=== PATIENT | male | born 1940 | race African-American/Black ===

== ENCOUNTER 2016-11-29 10:44 | Inpatient (IN) | payer OTHER ==
[~2016-11-29] VITALS: Ht 185.4 cm; Wt 86.2 kg
--- NOTE | ~2016-11-29 | 2DMMODE ---
[facility] [place] [address] 2 D/M-MODE ECHOCARDIOGRAM Name: KILLIAN LOPEZ Room #: 170-6 [facility] IN [facility]#: [id number] Admission: 11/29/16 Attend Phys: Madison Belle Discharge: Date of : 42 Date of Service: 11/29/16 1445 Report #: [id number] THIS REPORT FOR: //name// Transthoracic Echocardiography Ordering physician: Honey Muñoz Referring physician: Greta Buckley Saida A. Systems Operator: Nadira Fernandes Indications/History: Elevated BNP. Hx: ISCM, CHF, AICD, NJ, HTN, HLP BP: 114 / HR: 99bpm Height: 71in Weight: 180.6lb 80 Study data: M-mode, complete 2D, complete spectral Doppler, and color Doppler. Location: Emergency department. Routine. Image quality was adequate. The parasternal window was low. 2D measurements Normal Normal LVID ED 51.5mm 36-57 IVS ED 9.5mm 6-11 LVID ES 45.2mm 23-40 LVPW ED 10mm 6-11 LA volume 32ml/m2 16-28 AoRoot diam 32.2mm 21-37 index ED LVOT diameter 21mm 18-23 Findings: Left ventricle: The cavity size was normal. Wall thickness was normal. Systolic function was severely reduced. The estimated ejection fraction was in the range of 25% to 30%. Right ventricle: The cavity size was normal. Pacer wire or catheter noted in right ventricle. Systolic function was mildly reduced. Right atrium: The atrium was mildly dilated. Left atrium: The atrium was mildly dilated. Volume index: 32ml/m2 (S). Aortic valve: Structurally normal valve. Mildly sclerotic leaflets. Doppler: There was no stenosis. Mild [facility] [address] [place] [address] 2 D/M-MODE ECHOCARDIOGRAM Name: KILLIAN LOPEZ Room #: 170-6 ADM IN [place]#: [id number] Admission: 11/29/16 Attend Phys: Madison Belle Discharge: Date of : 42 Date of Service: 11/29/16 1445 Report #: [id number] regurgitation. Peak velocity: 141.9cm/s (S). Mitral valve: Structurally normal valve. Doppler: There was no evidence for stenosis. Mild regurgitation. Peak E-wave velocity: 84.4cm/s. Peak gradient: 2.9mm Hg (D). Tricuspid valve: Structurally normal valve. Doppler: There was no evidence for stenosis. Mild-moderate regurgitation. Regurgitant peak velocity: 238cm/s. Peak RV-RA gradient: 23mm Hg (S). Pulmonic valve: Structurally normal valve. Doppler: There was no evidence for stenosis. Trivial regurgitation. Pericardium: There was no pericardial effusion. Aorta: Aortic root: The aortic root was normal in size. Pulmonary artery: Systolic pressure was estimated to be 28mm Hg. Diastolic function: The study was not technically sufficient to allow evaluation of LV diastolic dysfunction due to atrial fibrillation. Systemic veins: Inferior vena cava: The vessel was normal in size; the respirophasic diameter changes were in the normal range (= 50%). Conclusions 1. Left ventricle: The cavity size was normal. Wall thickness was normal. Systolic function was severely reduced. The estimated ejection fraction was in the range of 25% to 30%. 2. Right ventricle: Pacer wire or catheter noted in right ventricle. 3. Right atrium: The atrium was mildly dilated. 4. Left atrium: The atrium was mildly dilated. 5. Aortic valve: Structurally normal valve. Mildly sclerotic leaflets. Mild regurgitation. 6. Mitral valve: Structurally normal valve. Mild regurgitation. 7. Pulmonic valve: Trivial regurgitation. 8. Tricuspid valve: Mild-moderate regurgitation. [facility] [address] [place] [address] 2 D/M-MODE ECHOCARDIOGRAM Name: KILLIAN LOPEZ Room #: 170-6 [facility] IN [facility].#: [id number] Admission: 11/29/16 Attend Phys: Madison Belle Discharge: Date of : 42 Date of Service: 11/29/16 1445 Report #: [id number] 9. Pulmonary arteries: Systolic pressure was estimated to be 28mm Hg. <ELECTRONICALLY SIGNED> By: Emanuel Sheppard MD 11/29/16 1532 1445 153 Emanuel Sheppard MD /tad
--- NOTE | ~2016-11-29 | EKG ---
[address] [place] [address] ELECTROCARDIOGRAM REPORT Name: KILLIAN LOPEZ Room #: 170-6 ADM IN M.R.#: [id number] Admission: 11/29/16 Attend Phys: Madison Belle MD Discharge: Date of : 42 Report #: [id number] THIS REPORT FOR: //name// [facility] ED Test Date: 2016-11-29 Test Time: 11:02:35 Pat Name: KILLIAN LOPEZ Department: Room: 170 Gender: M Record Librarian: LARY : 1940 Requested By: Madeline Epps Order Number: [id number] MD: Cecilio Jones Measurements Intervals [place] Rate: 118 P: [place]: QRS: 23 QRSD: 121 T: 67 QT: 400 QTc: 561 Interpretive Statements Atrial flutter with predominant 2:1 AV block Occasional premature ventricular complexes Poor R-wave progression Cannot rule out inferior infarct, age indeterminate Compared to ECG 10/09/2016 08:53:23 No significant change was found Electronically Signed On 11-29-2016 13:26:58 TRAPPER BIRD by Cecilio Jones [email or web address] <ELECTRONICALLY SIGNED> By: Cecilio Jones MD, [facility] 11/29/16 1326 1102 1102 Cecilio Jones MD, [facility] /EPI
[~2016-11-29 10:44] MED LIST: 8 HOUR650 MG PO; ACETAMINOPHEN325 M1 PO; ACETAMINOPHEN650 M5 PO; ALUM-MAG HYDRO360 ML PO; ASPERCREME177.4 ML; ASPIRIN EC81 M1 PO; ASPIRIN81 M2 PO; ATORVASTATIN CA20 MG PO; BENTYL 10 MG CA10 M1 PO; BENTYL 20 MG TA20 M1 PO; BIOFREEZE118 ML TP; BISACODYL SUPP10 MG RECTAL; BISCOLAX10 MG RC; CALCI-MIX500 MG PO; CARVEDILOL12.5 MG PO; CLONIDINE0.1 PO; COLACE100 MG PO; COUMADIN 5 MG TA5 M1 PO; COUMADIN7.5 MG PO; COZAAR 50 MG TA50 M1 PO; COZAAR 50 MG TA50 M2 PO; EFFEXOR XR37.5 MG PO; ENOXAPARIN100 MG/11 SUBQ; FLEXERIL PO; IRON325 PO; KLOR-CON 1010 MEQ PO; LASIX 40 MG TAB40 M1 PO; LASIX 40 MG TAB40 M2 PO; LEVOTHYROXIN0.025 MG PO; LIPITOR 20 MG T20 M1 PO; LYRICA 50 MG50 MG PO; MECLIZINE HCL12.5 MG PO; MELATONIN3 MG PO; METOLAZONE 2.52.5 M1; MIRALAX17 GM; MIRALAX17 GM PO; MIRALAX255 GM PO; MUCINEX600 MG PO; NEURONTIN 300300 M1 PO; NEURONTIN600 MG; NICOTINE TRANSD21 M1 TRANSDERM; NITROGLYCERIN0.4 MG SUBLING; NORCO 5-325 TA1 EACH PO; NYSTATIN 100,0015 G1 TP; OMEPRAZOLE20 M2 PO; OXYCODONE; OXYCODONE HCL 55 MG PO; OXYCODONE HCL15 MG PO; OXYCODONE HCL5 M1 PO; PACERONE 200 M200 M1 PO; PANTOPRAZOLE SO40 M1 PO; POTASSIUM CHLO20 ME1 PO; PRADAXA150 MG PO; PROAIR HFA8.5 GM; PROAIR HFA8.5 GM INH; PROTONIX40 M2 PO; ROXICODONE15 M1 PO; SENNA LAXATIVE1 EACH PO; SENOKOT-S1 TA1 PO; SIMETHICON CHEW80 M1; SLOW IRON PO; TAMSULOSIN HCL0.4 M1 PO; TUMS PO; TYLENOL325 MG; TYLENOL325 MG PO; VENTOLIN HFA INH8 GM INH; VITAMIN D 5050000 I1 PO; XANAX 0.25 MG0.25 MG PO; XANAX 0.5 MG0.5 MG PO; ZOFRAN ODT4 MG PO
[2016-11-29 10:45] VITALS: BP 125/92
[2016-11-29] MEDS ORDERED: CIPRO500 MG PO (10:52)
[2016-11-29] MEDS ORDERED: TESSALON PERLE100 MG PO (10:52)
[2016-11-29 11:12] LABS: HEMATOCRIT 43.8 % (42.0-52.0); HEMOGLOBIN 14.5 gm/dL (14.0-18.0); MCH 30.3 pg (26.0-34.0); MCV 91.7 fL (80.0-100.0); PLATELET COUNT 157 thou/uL (150-400); RBC 4.77 mil/uL (4.50-6.00); RDW 15.2 % (10.5-14.5)
[2016-11-29 11:14] LABS: MANUAL DIFF YES
[2016-11-29 11:15] LABS: CALCIUM 9.1 mg/dL (8.5-10.1); CREATININE 1.4 mg/dL (0.6-1.3); POTASSIUM 4.7 mmol/L (3.5-5.1)
[2016-11-29 11:21] LABS: ABG SAMPLE TYPE ARTERIAL; BE(vivo) -0.5 mmol/L (-2 to +3); HCO3 24.9 mmol/L (22.0-26.0); LACTATE 1.48 mmol/L (0.5-2.0); O2(CT) 19.8 mL/dL (15.0-23.0); O2Hb 95.4 % (92.0-98.0); PCO2 43.9 mmHg (35.0-45.0); PO2 97.8 mmHg (80.0-100.0); STICK SITE R.RADIAL; pH 7.372 (7.360-7.450); sO2 97.3 % (92.0-98.0); tCO2 26.3 mmol/L (24.0-30.0)
[2016-11-29 11:28] LABS: TROPONIN-I 0.1 ng/mL (<0.04-0.07)
[2016-11-29 11:48] LABS: ABSOLUTE NEUTROPHILS 4.4 thou/uL (1.4-8.2); PLATELET ESTIMATE NORMAL; TOTAL CELL COUNT 100
[2016-11-29 12:22] LABS: URINE BILIRUBIN NEGATIVE (Negative); URINE BLOOD 1+ (Negative); URINE COLOR YELLOW; URINE GLUCOSE-RANDOM* NEGATIVE (Negative); URINE KETONES NEGATIVE (Negative); URINE LEUKOCYTES-REFLEX TRACE (Negative); URINE PROTEIN (DIPSTICK) NEGATIVE (Negative); URINE SPECIFIC GRAVITY 1.025 (1.003-1.035); URINE UROBILINOGEN 0.2 E.U./dl (0.2-1.0)
[2016-11-29 12:28] LABS: SQUAMOUS 0-3 Few /LPF (0-3); URINE RBC 0-2 Rare /HPF (0-2); URINE WBC-REFLEX 0-5 Rare /HPF (0-5)
[2016-11-29 12:29] LABS: CRYSTALS None Seen /LPF (None Seen); HYALINE CASTS 0-3 Few /LPF (None Seen)
[2016-11-29 16:16] VITALS: BP 107/70
[2016-11-29 19:33] VITALS: BP 119/78
[2016-11-29 23:12] VITALS: BP 107/70
[2016-11-30] MEDS ORDERED: EFFEXOR XR75 MG PO ×2 (02:58→02:59)
[2016-11-30] MEDS ORDERED: CARVEDILOL12.5 MG PO (03:10)
[2016-11-30 03:26] LABS: ABSOLUTE NEUTROPHILS 2.7 thou/uL (1.4-8.2); BASOPHILS 0.8 % (0.0-2.0); HEMATOCRIT 44.3 % (42.0-52.0); HEMOGLOBIN 14.1 gm/dL (14.0-18.0); LYMPHOCYTES 16.7 % (24.0-44.0); MCH 30.1 pg (26.0-34.0); MCHC 31.8 % (28.0-37.0); MCV 94.8 fL (80.0-100.0); MONOCYTES 11.9 % (1.0-8.0); PLATELET COUNT 133 thou/uL (150-400); POLYS 69.6 % (36.0-66.0); RBC 4.67 mil/uL (4.50-6.00); WBC 3.8 thou/uL (4.0-11.0)
[2016-11-30 03:48] LABS: MANUAL DIFF NO
[2016-11-30 03:52] VITALS: BP 114/81
[2016-11-30 03:55] LABS: ALBUMIN 2.3 g/dL (3.4-5.0); CALCIUM 8.6 mg/dL (8.5-10.1); CREATININE 1.4 mg/dL (0.6-1.3); POTASSIUM 3.8 mmol/L (3.5-5.1); TOTAL BILIRUBIN 0.5 mg/dL (<0.1-1.0); TOTAL PROTEIN 6.6 g/dL (6.4-8.2)
[2016-11-30 08:00] VITALS: BP 120/80
[2016-11-30 13:41] VITALS: BP 94/60
[2016-11-30 13:44] VITALS: BP 103/70
[2016-11-30 17:05] VITALS: BP 98/64
[2016-11-30 20:19] VITALS: BP 100/67
[2016-12-01 04:27] VITALS: BP 97/64
[2016-12-01 04:28] LABS: HEMATOCRIT 44.2 % (42.0-52.0); HEMOGLOBIN 14.2 gm/dL (14.0-18.0); MCH 30.5 pg (26.0-34.0); MCHC 32.1 % (28.0-37.0); PLATELET COUNT 125 thou/uL (150-400); RBC 4.65 mil/uL (4.50-6.00); RDW 15.1 % (10.5-14.5); WBC 3.9 thou/uL (4.0-11.0)
[2016-12-01 04:32] LABS: MANUAL DIFF YES
[2016-12-01 05:47] LABS: ABSOLUTE NEUTROPHILS 2.1 thou/uL (1.4-8.2); ANISOCYTOSIS SLIGHT; MACROCYTES SLIGHT; TOTAL CELL COUNT 100
[2016-12-01 08:14] VITALS: BP 99/64
[2016-12-01 08:22] LABS: CALCIUM 8.1 mg/dL (8.5-10.1); CREATININE 1.3 mg/dL (0.6-1.3); POTASSIUM 3.5 mmol/L (3.5-5.1)
[2016-12-01 12:05] VITALS: BP 111/72
[2016-12-01 20:02] VITALS: BP 83/53
[2016-12-02] VITALS: BP 92/62
[2016-12-02 03:59] VITALS: BP 98/58
[2016-12-02 04:31] LABS: HEMATOCRIT 42.5 % (42.0-52.0); HEMOGLOBIN 13.7 gm/dL (14.0-18.0); MCH 30.1 pg (26.0-34.0); MCHC 32.3 % (28.0-37.0); MCV 93.2 fL (80.0-100.0); PLATELET COUNT 126 thou/uL (150-400); RBC 4.56 mil/uL (4.50-6.00); RDW 15.2 % (10.5-14.5); WBC 3.7 thou/uL (4.0-11.0)
[2016-12-02 04:39] LABS: MANUAL DIFF YES
[2016-12-02 04:48] LABS: ALBUMIN 2.5 g/dL (3.4-5.0); CALCIUM 8.6 mg/dL (8.5-10.1); CREATININE 1.5 mg/dL (0.6-1.3); POTASSIUM 3.8 mmol/L (3.5-5.1); TOTAL BILIRUBIN 0.4 mg/dL (<0.1-1.0); TOTAL PROTEIN 6.8 g/dL (6.4-8.2)
[2016-12-02 07:00] VITALS: BP 98/64
[2016-12-02 09:01] LABS: ABSOLUTE NEUTROPHILS 1.8 thou/uL (1.4-8.2); TOTAL CELL COUNT 100
[2016-12-02] MEDS ORDERED: TAMIFLU30 MG PO (09:40)
[2016-12-02] MEDS ORDERED: PRADAXA150 MG PO (09:40)
[2016-12-02] MEDS ORDERED: AUGMENTIN 875875 MG PO (09:40)
[2016-12-02] MEDS ORDERED: ZYVOX600 MG PO (09:40)
[2016-12-02] MEDS ORDERED: LEVAQUIN 750 M750 MG PO (09:40)
[2016-12-02] MEDS ORDERED: OXYCODONE (09:40)
[2016-12-02 11:15] VITALS: BP 123/78
[2017-01-29] MEDS ORDERED: VITAMINC500 PO (01:00)
[2017-01-29] MEDS ORDERED: BIOFREEZE118 ML (01:02)
[2017-01-29] MEDS ORDERED: COLACE100 MG PO (01:03)
[2017-01-29] MEDS ORDERED: ZANTAC 150MG T150 MG PO (01:07)
[2017-01-29] MEDS ORDERED: GABAPENTIN 100100 MG PO (04:12)
[2017-01-29] MEDS ORDERED: LASIX 40 MG TAB40 M2 PO (04:16)
[2017-01-31] MEDS ORDERED: AUGMENTIN 875875 MG PO (10:56)
== END 2016-12-02 14:46 | DRG 871 ==
LOC: ER 10:44 → EROBS 12:22 → 2N 12:22
PROVIDERS: Emergency Medicine; Internal Medicine Endocrinology, Diabetes & Metabolism; Nurse Practitioner
DX: A41.9 Sepsis, unspecified organism (principal); J09.X1 Influenza due to identified novel influenza A virus with pneumonia; I50.23 Acute on chronic systolic (congestive) heart failure; J15.9 Unspecified bacterial pneumonia; N17.9 Acute kidney failure, unspecified; N39.0 Urinary tract infection, site not specified; I48.92 Unspecified atrial flutter; G89.29 Other chronic pain; M54.9 Dorsalgia, unspecified; Z96.643 Presence of artificial hip joint, bilateral; I11.0 Hypertensive heart disease with heart failure; F17.210 Nicotine dependence, cigarettes, uncomplicated; E86.0 Dehydration; K21.9 Gastro-esophageal reflux disease without esophagitis; F32.9 Major depressive disorder, single episode, unspecified; E78.5 Hyperlipidemia, unspecified; M25.571 Pain in right ankle and joints of right foot; I25.10 Atherosclerotic heart disease of native coronary artery without angina pectoris; Z95.5 Presence of coronary angioplasty implant and graft; Z79.82 Long term (current) use of aspirin; Z79.2 Long term (current) use of antibiotics; I25.2 Old myocardial infarction; Z95.810 Presence of automatic (implantable) cardiac defibrillator
CPT/HCPCS: 10081

== ENCOUNTER 2016-12-11 13:56 | Emergency (ER) | payer OTHER ==
[~2016-12-11] VITALS: Ht 175.3 cm; Wt 83.9 kg
[~2016-12-11 13:56] MED LIST changes: +AUGMENTIN 875875 MG PO; +CIPRO500 MG PO; +EFFEXOR XR75 MG PO; +LEVAQUIN 750 M750 MG PO; +TAMIFLU30 MG PO; +TESSALON PERLE100 MG PO; +ZYVOX600 MG PO
[2016-12-11 14:27] LABS: HEMATOCRIT 38.7 % (42.0-52.0); HEMOGLOBIN 12.9 gm/dL (14.0-18.0); MCH 30.6 pg (26.0-34.0); MCHC 33.2 % (28.0-37.0); PLATELET COUNT 212 thou/uL (150-400); RBC 4.21 mil/uL (4.50-6.00); RDW 14.8 % (10.5-14.5)
[2016-12-11 14:29] LABS: CALCIUM 9.2 mg/dL (8.5-10.1); CREATININE 2.5 mg/dL (0.6-1.3); MANUAL DIFF YES; POTASSIUM 4.9 mmol/L (3.5-5.1)
[2016-12-11 14:36] LABS: ALBUMIN 2.8 g/dL (3.4-5.0); TOTAL BILIRUBIN 0.5 mg/dL (<0.1-1.0); TOTAL PROTEIN 7.5 g/dL (6.4-8.2)
[2016-12-11 14:56] LABS: ABSOLUTE NEUTROPHILS 6.1 thou/uL (1.4-8.2); PLATELET ESTIMATE NORMAL; TOTAL CELL COUNT 100
[2017-01-29] MEDS ORDERED: VITAMINC500 PO (01:00)
[2017-01-29] MEDS ORDERED: BIOFREEZE118 ML (01:02)
[2017-01-29] MEDS ORDERED: COLACE100 MG PO (01:03)
[2017-01-29] MEDS ORDERED: ZANTAC 150MG T150 MG PO (01:07)
[2017-01-29] MEDS ORDERED: GABAPENTIN 100100 MG PO (04:12)
[2017-01-29] MEDS ORDERED: LASIX 40 MG TAB40 M2 PO (04:16)
[2017-01-31] MEDS ORDERED: AUGMENTIN 875875 MG PO (10:56)
== END 2016-12-11 16:01 ==
LOC: ER 13:56
PROVIDERS: Emergency Medicine
DX: K25.9 Gastric ulcer, unspecified as acute or chronic, without hemorrhage or perforation (principal); M54.9 Dorsalgia, unspecified; G89.29 Other chronic pain; K21.9 Gastro-esophageal reflux disease without esophagitis; I25.2 Old myocardial infarction; I25.10 Atherosclerotic heart disease of native coronary artery without angina pectoris; E78.5 Hyperlipidemia, unspecified; F32.9 Major depressive disorder, single episode, unspecified; I11.0 Hypertensive heart disease with heart failure; I50.30 Unspecified diastolic (congestive) heart failure; F17.210 Nicotine dependence, cigarettes, uncomplicated; Z95.5 Presence of coronary angioplasty implant and graft

== ENCOUNTER 2017-02-16 12:41 | Emergency (ER) | payer OTHER ==
[~2017-02-16] VITALS: Ht 185.4 cm; Wt 90.7 kg
--- NOTE | ~2017-02-16 | EKG ---
[address] [address] ELECTROCARDIOGRAM REPORT Name: KALIENGOZIMadayKILLIAN Wei Room #: [facility]#: [id number] Admission: 02/16/17 Attend Phys: Discharge: Date of : 42 Report #: [id number] THIS REPORT FOR: //name// [facility] Test Date: 2017-02-16 Test Time: 13:01:20 Pat Name: KILLIAN LOPEZ Department: Room: Gender: M Drawing In Hand: KKODJOVI : 1940 Requested By: Phu Ag Order Number: [id number] MD: Brian Ariza Measurements Intervals [place] Rate: 111 P: 82 WI: 172 QRS: -60 QRSD: 139 T: 99 QT: 345 QTc: 469 Interpretive Statements Atrial flutter Nonspecific IVCD with LAD Probable anteroseptal infarct, recent Electronically Signed On 02-16-2017 13:42:49 CDT by Brian Ariza [email or web address] <ELECTRONICALLY SIGNED> By: Brian Ariza MD 02/16/17 1342 1301 1301 MD NINO Gallo
[~2017-02-16 12:41] MED LIST changes: +BIOFREEZE118 ML; +GABAPENTIN 100100 MG PO; +VITAMINC500 PO; +ZANTAC 150MG T150 MG PO
[2017-02-16 12:53] LABS: ABSOLUTE NEUTROPHILS 2.8 thou/uL (1.4-8.2); BASOPHILS 0.4 % (0.0-2.0); EOSINOPHILS 1.1 % (0.0-3.0); HEMOGLOBIN 12.4 gm/dL (14.0-18.0); LYMPHOCYTES 40.9 % (24.0-44.0); MCH 29.8 pg (26.0-34.0); MCHC 33.4 g/dL (28.0-37.0); MCV 89.1 fL (80.0-100.0); MONOCYTES 9.9 % (1.0-8.0); PLATELET COUNT 171 thou/uL (150-400); POLYS 47.7 % (36.0-66.0); RBC 4.15 mil/uL (4.50-6.00); RDW 14.2 % (10.5-14.5)
[2017-02-16 13:00] LABS: MANUAL DIFF NO
[2017-02-16 13:02] LABS: ANION GAP 9 mmol/L (7-16); BUN 31 mg/dL (7-18); CALCIUM 9.5 mg/dL (8.5-10.1); CHLORIDE 107 mmol/L (98-107); CO2 25 mmol/L (21-32); CREATININE 1.4 mg/dL (0.6-1.3); GLUCOSE 108 mg/dL (70-99); POTASSIUM 4.3 mmol/L (3.5-5.1); SODIUM 141 mmol/L (136-145)
[2017-02-16 13:14] LABS: NT-PRO BRAIN NAT PEPTIDE 346 pg/mL (<300); TROPONIN-I < 0.04 ng/mL (<0.04-0.07)
== END 2017-02-16 18:24 | disposition home or self-care (01) ==
LOC: ER 12:41
PROVIDERS: Nurse Practitioner
DX: I50.9 Heart failure, unspecified (principal); R60.0 Localized edema; I10 Essential (primary) hypertension; F17.210 Nicotine dependence, cigarettes, uncomplicated; I25.2 Old myocardial infarction; E78.5 Hyperlipidemia, unspecified; F32.9 Major depressive disorder, single episode, unspecified; G89.29 Other chronic pain; K21.9 Gastro-esophageal reflux disease without esophagitis; Z95.5 Presence of coronary angioplasty implant and graft

== ENCOUNTER 2017-03-04 12:45 | Inpatient (IN) | payer OTHER ==
[2017-03-04] VITALS (38 sets, daily range): BP systolic 77–146; BP diastolic 35–100
[~2017-03-04] VITALS: Ht 185.4 cm; Wt 97.1 kg
--- NOTE | ~2017-03-04 | HC ---
[facility] [place] [address] [place] [address] CONSULTATION Name: KILLIAN LOPEZ Room #: 239-P ADM IN M.R.#: [id number] Admission: 03/04/17 Attend Phys: Madison Belle MD Discharge: Date of : 42 Report #: [id number] THIS REPORT FOR: //name// CC: QUYEN unknown Bo Buckley DO DATE OF SERVICE: 03/04/2017 HISTORY OF PRESENT ILLNESS: The patient is a 76-year-old male with an upper GI bleed, reportedly having hematemesis several days. He has multiple medical problems. He is on Pradaxa. He does report some midepigastric abdominal pain, began having melena for the last several days, melanotic stools, apparently he has had a history of peptic ulcer disease in the past. Most of the history was obtained through the computer and ER note. The patient also has aspirin 81 mg listed. He is on omeprazole and Zantac as well. He is currently in the ICU. He is hypotensive, his INR is 4.4. He is getting FFP at this time as well as another unit of blood has been ordered. He is alert. He is complaining of abdominal pain and leg pain. He has a Yankauer sucking out some bright red blood from his mouth. There is evidence of bright red blood in his mouth as well around his teeth. He was given IV fluid bolus in the emergency room. He denies any chest pain or shortness of breath currently. PAST MEDICAL HISTORY: History of coronary artery disease status post cardiac stent placement, history of CO in the past, hyperlipidemia, depression, gastroesophageal reflux disease, possible history of peptic ulcer disease, congestive heart failure, hypertension, chronic back pain. He has had hip replacement surgery, IVC filter placement apparently for DVT. MEDICATIONS: At home Pradaxa, oxycodone, Lasix, Cozaar, potassium chloride, Neurontin, aspirin 81 mg, Dulcolax, Tums, , omeprazole, Zantac, Colace, vitamin C, Tessalon perles p.r.n., vitamin D, Tylenol p.r.n., Senokot, Nitrostat, MiraLax, iron, Coreg, Effexor, Xanax, Synthroid. ALLERGIES: No known drug allergies. FAMILY HISTORY: Negative for colon cancer. SOCIAL HISTORY: He does have a history of cigarette smoking as well as alcohol use. REVIEW OF SYSTEMS: As per HPI. PHYSICAL EXAMINATION: VITAL SIGNS: Temperature is 98.0, his blood pressure currently is 98/66, his [address] [place] [address] CONSULTATION Name: KILLIAN LOPEZ Room #: 239-P [facility] IN M.R.#: [id number] Admission: 03/04/17 Attend Phys: Madison Belle MD Discharge: Date of : 41 Report #: [id number] pulse of 103 and respiratory rate 24. GENERAL: He is alert and oriented times 3 in no acute distress other than he does have blood in his mouth. HEENT: Sclerae anicteric, oropharynx shows blood again some bright red blood. NECK: Supple. CARDIOVASCULAR: Regular rhythm, but tachycardic. CHEST: Clear to auscultation anteriorly bilaterally. ABDOMEN: Soft. He is mildly tender in the midepigastrium, nondistended, positive bowel sounds. EXTREMITIES: Positive pitting edema to the lower extremities bilaterally. LABORATORY DATA: Sodium 141, potassium 4.1, chloride 105, bicarbonate 27, BUN 31, creatinine 1.8, glucose 79. BNP is 19,462. INR 4.4. WBC is 4.9, hemoglobin 13.1, platelet count is 123. ASSESSMENT AND PLAN: 1. Upper gastrointestinal bleed. The patient has been on Pradaxa and aspirin. INR is 4.4. Plan is to reverse Pradaxa. He is also getting FFP, obviously we need to monitor his hemoglobin closely. He is in the ICU setting at this time. His blood pressure has improved somewhat since his IV fluid bolus. He has been started on IV Protonix drip at this time. I explained to the patient we need to monitor his labs closely and I would plan on an upper endoscopy when things are more stable and when his INR has improved. We will continue to follow closely. Thank you for allowing me to participate in his care. <ELECTRONICALLY SIGNED> By: Brandon Arango MD 03/05/17 1132 1650 2228 Brandon Arango MD /nt
--- NOTE | ~2017-03-04 | EKG ---
[address] [address] ELECTROCARDIOGRAM REPORT Name: KILLIAN LOPEZ Room #: 239-P ADM IN M.R.#: [id number] Admission: 03/04/17 Attend Phys: Madison Belle MD Discharge: Date of : 42 Report #: [id number] THIS REPORT FOR: //name// [facility] ED Test Date: 2017-03-04 Test Time: 13:51:48 Pat Name: KILLIAN LOPEZ Department: Room: 239 Gender: M Customer Liaison: josé : 1940 Requested By: Zane Worrell Order Number: [id number] MD: Cecilio Jones Measurements Intervals [place] Rate: 105 P: NE: QRS: 17 QRSD: 109 T: 250 QT: 391 QTc: 517 Interpretive Statements Atrial flutter Anterior infarct, old Nonspecific T abnormalities, lateral leads Prolonged QT interval Compared to ECG 02/16/2017 13:01:20 premature ventricular complexes are now present Electronically Signed On 03-05-2017 8:31:23 CDT by Cecilio Jones [email or web address] <ELECTRONICALLY SIGNED> By: Cecilio Joens MD, [facility] 03/05/17 0831 1351 1351 Cecilio Jones MD, [facility] /EPI
--- NOTE | ~2017-03-04 | HC ---
[facility] [place] [address] [place] [address] CONSULTATION Name: KILLIAN LOPEZ Room #: 239-P ADM IN M.R.#: [id number] Admission: 03/04/17 Attend Phys: Madison Belle MD Discharge: Date of : 41 Report #: [id number] THIS REPORT FOR: //name// CC: QUYEN unknown Bo Bey INDICATION: Hematemesis/hemoptysis. HISTORY OF PRESENT ILLNESS: This is a 76-year-old gentleman transferred from [facility] for hematemesis and melena. He was noted to have hematemesis/hemoptysis over the past few days as well as melena. He denies any history of fever, chills, shortness of breath, or congestion. He does report having some chest pain. He describes a focal discomfort in his left chest area, reproducible with palpation. PAST MEDICAL HISTORY: CAD with remote history of stent placement. History of ischemic cardiomyopathy, echo from 11/2016 reveals EF in the 25 to 30% range. History of ICD, has been followed by Dr. Brian Ariza for his cardiac issues. History of remote DVT, had a supratherapeutic INR in 2014, undergoing placement of an IVC filter. History of AFib/atrial flutter, on Pradaxa therapy. History of anemia of chronic renal insufficiency. Wheelchair bound. ALLERGIES: None. MEDICATIONS: Include Pradaxa 150 mg twice a day, Lasix 40 mg daily, losartan 25 mg, potassium, Lipitor 20 mg daily, Coreg 12.5 mg twice a day, ranitidine, omeprazole, albuterol inhaler, aspirin 81 mg daily. SOCIAL HISTORY: Denies tobacco use. FAMILY HISTORY: Negative for premature CAD. REVIEW OF SYSTEMS: A full 10-point review of systems performed, only the pertinent positives and negatives are described in the HPI. PHYSICAL EXAMINATION: VITAL SIGNS: Blood pressure is 95/60, heart rate is 105 beats per minute. GENERAL APPEARANCE: This is an elderly appearing male in no acute respiratory distress. HEAD AND EYES: Normocephalic. Sclerae are anicteric. ENT: Oral mucosa moist. NECK: Supple. LUNGS: Diminished breath sounds at the bases. CARDIAC: S1, S2 positive. ABDOMEN: Soft, nontender. Bowel sounds positive. EXTREMITIES: No major joint deformities, 2 to 3+ bilateral lower extremity edema. [facility] [address] [place] [address] CONSULTATION Name: KILLIAN LOPEZ Room #: 239-P ADM IN M.R.#: [id number] Admission: 03/04/17 Attend Phys: Madison Belle MD Discharge: Date of : 41 Report #: [id number] ECG reveals atrial flutter, PVCs, poor R-wave progression, low voltage, nonspecific T-wave abnormalities. LABORATORY VALUES: White count is 4.9, hemoglobin is 13.1, sodium is 141, creatinine is 1.8. Troponin is negative. INR is 4.4. ASSESSMENT AND PLAN: 1. Gastrointestinal bleed/hematemesis/melena. The patient received Praxbind. Continue to monitor his hemoglobin, and GI evaluation will be needed. Would hold Pradaxa at this time. 2. Coronary artery disease/myocardial infarction/percutaneous coronary intervention, appears to be stable from a cardiac standpoint. He reports atypical chest pains. Continue with medications including the beta-anna. 3. Ischemic cardiomyopathy/implantable cardioverter-defibrillator, stable with no symptoms of congestion. Continue with Lasix therapy. 4. Atrial flutter, the heart rate is slightly elevated, attributed to his low blood pressure. Continue with rate controlling medications. 5. Chronic renal insufficiency, follow creatinine. Thank you for allowing me to participate in the care of your patient. <ELECTRONICALLY SIGNED> By: Fred Atkins MD 03/05/17 0739 00 2225 Fred Atkins MD /nt
--- NOTE | ~2017-03-04 | P ---
[facility] [place] [address] [place] [address] PROCEDURE REPORT Name: KILLIAN LOPEZ Room #: 209-P [facility] IN M.R.#: [id number] Admission: 03/04/17 Attend Phys: Madison Belle MD Discharge: Date of : 41 Report #: [id number] THIS REPORT FOR: //name// CC: FAM unknown Madison Belle MD DATE OF SERVICE: 03/05/2017 PROCEDURE PERFORMED: Upper endoscopy. HISTORY OF PRESENT ILLNESS: The patient is a 76-year-old male with an upper GI bleed who had been on Pradaxa, yesterday was in the ICU, actually suctioning bright red blood out of his mouth during the day. His INR yesterday was 4.4. He did receive FFP as well as reversal agent for Pradaxa. He has been hypotensive. He has improved. There has been no further obvious bleeding. Plan is for upper endoscopy. PROCEDURE: The risks and benefits of the procedure were explained to the patient, those risks including, but not limited to bleeding, perforation, the risk of sedation. He understood these risks and gave informed consent. Sedation was given using propofol per anesthesia. The procedure was performed in the ICU room. Next, using a standard Muncheryinon upper endoscope, the scope was placed in the patient's mouth and advanced under direct vision through the esophagus, stomach and into the second portion of the duodenum. The esophagus was normal throughout. The GE junction was normal. Overall, the gastric mucosa showed mild patchy gastritis in the fundus and body, more linear gastritis was noted in the antrum, which may be consistent with GAVE. I was unable to obtain biopsies today as the patient's INR was 1.9; however, there was no bleeding throughout the stomach, in fact there was no blood noted in the esophagus, stomach or the duodenum. The pylorus was normal and patent. The duodenal bulb, first and second portion were all normal as well. The scope was then slowly withdrawn. I then examined the larynx area closely as the patient appeared to may be have bleeding from his mouth yesterday with the way blood was coming out through the . There was a small clot just to the right of the larynx, I could not tell if this was attached to an ulcer. There was no obvious mass lesion. I did want to suction this away. At this point, since this is in the hypopharynx area, I felt best to have the ENT potentially take a look, again there was no active bleeding at this time. The scope was then withdrawn and the procedure terminated. The patient tolerated the procedure well. IMPRESSION: 1. Gastritis, possible source of recent upper gastrointestinal bleed. No active bleeding at this time. 2. Small appearing clot just to the right of the larynx, this may be the source of recent bleed, we will therefore have ENT evaluate as well. [address] [address] PROCEDURE REPORT Name: KILLIAN LOPEZ Room #: 209-P [facility] IN M.R.#: [id number] Admission: 03/04/17 Attend Phys: Madison Belle MD Discharge: Date of : 41 Report #: [id number] RECOMMENDATIONS: Continue to monitor hemoglobin and continue holding anticoagulation therapy. Thank you for allowing me to participate in his care. <ELECTRONICALLY SIGNED> By: Brandon Arango MD 03/06/17 1341 1214 05 Brandon Arango MD /nt
--- NOTE | ~2017-03-04 | EKG ---
[address] [address] ELECTROCARDIOGRAM REPORT Name: KILLIAN LOPEZ Room #: 209-P ADM IN M.R.#: [id number] Admission: 03/04/17 Attend Phys: Madison Belle MD Discharge: Date of : 41 Report #: [id number] THIS REPORT FOR: //name// [facility] Test Date: 2017-03-06 Test Time: 16:13:27 Pat Name: KILLIAN LOPEZ Department: Room: 209 P Gender: M Senior Bi Architect: Chris RICO : 1940 Requested By: Madison Belle Order Number: [id number] MD: Cecilio Jones Measurements Intervals [place] Rate: 106 P: 192 [place]: 166 QRS: -36 QRSD: 108 T: 88 QT: 362 QTc: 481 Interpretive Statements Atrial flutter with occasional premature ventricular or aberrantly conducted supraventricular complexes Low voltage, extremity and precordial leads Poor R wave progression Baseline wander in lead(s) III Compared to ECG 03/04/2017 13:51:48 [address] changes in the ST-T wave segments Electronically Signed On 03-07-2017 9:22:26 CDT by Cecilio Jones [email or web address] <ELECTRONICALLY SIGNED> By: Cecilio Jones MD, [facility] 03/07/17 0922 1613 1613 Cecilio Jones MD, [facility] /EPI
--- NOTE | ~2017-03-04 | HC ---
[facility] [place] [address] [place] [address] CONSULTATION Name: KILLIAN LOPEZ Room #: 246-P [facility] IN M.R.#: [id number] Admission: 03/04/17 Attend Phys: Bo Bey MD Discharge: Date of : 41 Report #: [id number] THIS REPORT FOR: //name// CC: FAM unknown Bo Bey MD DATE OF SERVICE: 03/04/2017 REFERRING PROVIDER: Bo Bey M.D. REASON FOR CONSULTATION: Anemia and hypotension. CHIEF COMPLAINT: Bleeding and hematemesis. HISTORY OF PRESENT ILLNESS: Our group was asked to see the patient in consultation while hospitalized at [facility] in the ICU. A 76-year-old male without any significant past pulmonary history other than history of DVTs and venous thromboembolism, had been on anticoagulation with Pradaxa, but started having melena over the last few days, maybe had some hematemesis and epistaxis. Presented to the Emergency Department for further evaluation and was noted to have significant anemia. He has already received antidote for Pradaxa as well as some FFP and packed red blood cells and currently remains comfortable in the ICU at this time, although hypothermic and on a Lashawn Hugger. He is awake, arousable and conversant. ALLERGIES: None known. PAST MEDICAL HISTORY: 1. Recurrent venous thromboembolism. 2. The patient states he has a history of peptic ulcer disease. 3. Hypertension. 4. Remote history of tobacco use. 5. Chronic back pain. 6. Coronary artery disease. 7. History of pacemaker implantation. 8. History of systolic congestive heart failure, most recent ejection fraction 50%. 9. End-stage kidney disease. 10. Hypothyroidism. 11. Peripheral neuropathy. 12. Anxiety disorder. 13. History of atrial fibrillation and flutter. SOCIAL HISTORY: Ex-smoker. No significant alcohol consumption. [facility] [address] [place] [address] CONSULTATION Name: JESSICAKILLIAN Sanjuana Room #: 246-P [facility] IN [facility].#: [id number] Admission: 03/04/17 Attend Phys: Bo Bey MD Discharge: Date of : 41 Report #: [id number] FAMILY HISTORY: Noncontributory due to advanced age. REVIEW OF SYSTEMS: Except as described in HPI, a 12-point review of systems is normal. PHYSICAL EXAMINATION: VITAL SIGNS: Hypothermic, pulse 110 and irregular, respiratory rate 24 and blood pressure 116/72. GENERAL: This is a thin elderly male, in no distress. EARS, NOSE AND THROAT: Some dental caries noted. Dry oropharynx. LUNGS: Essentially clear to auscultation anteriorly. CARDIOVASCULAR: Heart was tachycardic and irregular. No murmurs. ABDOMEN: Soft. There is a left flank hematoma noted where there is some diffuse tenderness. EXTREMITIES: Revealed diminished pulses without significant edema. LABORATORY DATA: White blood cell count 6000, hemoglobin 10, hematocrit 33 and platelet count of 89. Sodium 141, potassium 4.1, chloride 105, bicarbonate 27, BUN 31 and creatinine 1.8. INR is 1.9, it was 4.4 on admission. MRSA screen is pending with prior history of MRSA. IMPRESSION: 1. Gastrointestinal bleeding, source unclear, some concern for both upper and lower sources. The patient states she has a history of peptic ulcer disease. Gastroenterology consultation pending. 2. Epistaxis. 3. Chronic anticoagulation with Pradaxa, status post reversal agents with a history of venous thromboembolism. 4. History of recurrent venous thromboembolism. He will need some kind of lifelong anticoagulation, would suggest warfarin. 5. Probable left flank hematoma. 6. Hypothermia. 7. History of coronary artery disease. 8. History of atrial fibrillation. SUGGESTIONS: As outlined above, anticoagulate. At some point, may need IVC filter if recurrent PEs and ongoing blood loss. GI consultation. ICU care. We will follow. Thank you for requesting our suggestions. By: 2119 0057 Pedro Albarran MD /nt
[2017-03-04 14:05] LABS: HEMATOCRIT 41.8 % (42.0-52.0); HEMOGLOBIN 13.1 gm/dL (14.0-18.0); MCH 28.6 pg (26.0-34.0); MCHC 31.4 g/dL (28.0-37.0); MCV 90.8 fL (80.0-100.0); PLATELET COUNT 123 thou/uL (150-400); RDW 16.8 % (10.5-14.5); WBC 4.9 thou/uL (4.0-11.0)
[2017-03-04 14:06] LABS: MANUAL DIFF YES
[2017-03-04 14:11] LABS: ANION GAP 9 mmol/L (7-16); BUN 31 mg/dL (7-18); CALCIUM 8.3 mg/dL (8.5-10.1); CHLORIDE 105 mmol/L (98-107); CO2 27 mmol/L (21-32); CREATININE 1.8 mg/dL (0.7-1.3); GLUCOSE 79 mg/dL (74-106); SODIUM 141 mmol/L (136-145)
[2017-03-04 14:16] LABS: INR 4.4; PROTIME 45.7 Seconds (9.3-11.4)
[2017-03-04 14:23] LABS: NT-PRO BRAIN NAT PEPTIDE 19462 pg/mL (<300); TROPONIN-I < 0.04 ng/mL (<0.04-0.07)
[2017-03-04 14:31] LABS: ABSOLUTE NEUTROPHILS 2.6 thou/uL (1.4-8.2); NUCLEATED RBCS 1 /100WBC; TOTAL CELL COUNT 100
[2017-03-04 14:32] LABS: ANISOCYTOSIS 1+
[2017-03-04 19:56] LABS: HEMATOCRIT 32.5 % (42.0-52.0); HEMOGLOBIN 10.4 gm/dL (14.0-18.0); MCH 28.6 pg (26.0-34.0); MCHC 32.1 g/dL (28.0-37.0); MCV 89.2 fL (80.0-100.0); RBC 3.64 mil/uL (4.50-6.00); RDW 16.8 % (10.5-14.5); WBC 6.1 thou/uL (4.0-11.0)
[2017-03-04 20:27] LABS: APTT 34.5 Seconds (24.5-32.8); PROTIME 19.6 Seconds (9.3-11.4)
[2017-03-04 20:28] LABS: INR 1.9
[2017-03-05] VITALS (48 sets, daily range): BP systolic 70–146; BP diastolic 43–135
[2017-03-05 04:07] LABS: ABSOLUTE NEUTROPHILS 7.8 thou/uL (1.4-8.2); BASOPHILS 0.7 % (0.0-2.0); EOSINOPHILS 0.4 % (0.0-3.0); HEMATOCRIT 34.3 % (42.0-52.0); HEMOGLOBIN 11.1 gm/dL (14.0-18.0); LYMPHOCYTES 10.7 % (24.0-44.0); MCH 28.6 pg (26.0-34.0); MCHC 32.5 g/dL (28.0-37.0); MCV 88.1 fL (80.0-100.0); MONOCYTES 8.3 % (1.0-8.0); PLATELET COUNT 92 thou/uL (150-400); POLYS 79.9 % (36.0-66.0); RBC 3.89 mil/uL (4.50-6.00); RDW 16.6 % (10.5-14.5); WBC 9.7 thou/uL (4.0-11.0)
[2017-03-05 04:17] LABS: ALBUMIN 2.1 g/dL (3.4-5.0); CALCIUM 7.5 mg/dL (8.5-10.1); POTASSIUM 4.6 mmol/L (3.5-5.1); TOTAL BILIRUBIN 1.5 mg/dL (<0.1-1.0); TOTAL PROTEIN 5.7 g/dL (6.4-8.2)
[2017-03-05 04:25] LABS: MANUAL DIFF NO
[2017-03-06] VITALS (12 sets, daily range): BP systolic 91–116; BP diastolic 61–83
[2017-03-06 04:24] LABS: BASOPHILS 0.3 % (0.0-2.0); EOSINOPHILS 1.6 % (0.0-3.0); HEMATOCRIT 34.6 % (42.0-52.0); HEMOGLOBIN 10.9 gm/dL (14.0-18.0); LYMPHOCYTES 21.7 % (24.0-44.0); MCH 28.3 pg (26.0-34.0); MCHC 31.5 g/dL (28.0-37.0); MCV 89.8 fL (80.0-100.0); MONOCYTES 10.7 % (1.0-8.0); PLATELET COUNT 95 thou/uL (150-400); POLYS 65.7 % (36.0-66.0); RBC 3.86 mil/uL (4.50-6.00); RDW 17.1 % (10.5-14.5); WBC 9.2 thou/uL (4.0-11.0)
[2017-03-06 04:28] LABS: MANUAL DIFF NO
[2017-03-06 04:32] LABS: CALCIUM 8.4 mg/dL (8.5-10.1); CREATININE 2.1 mg/dL (0.7-1.3); POTASSIUM 5.1 mmol/L (3.5-5.1)
[2017-03-07 03:27] LABS: HEMATOCRIT 33.8 % (42.0-52.0); HEMOGLOBIN 10.8 gm/dL (14.0-18.0); MCH 28.3 pg (26.0-34.0); MCV 88.6 fL (80.0-100.0); PLATELET COUNT 112 thou/uL (150-400); RBC 3.81 mil/uL (4.50-6.00); RDW 16.5 % (10.5-14.5); WBC 7.2 thou/uL (4.0-11.0)
[2017-03-07 03:35] LABS: INR 1.5
[2017-03-07 03:38] LABS: MANUAL DIFF YES
[2017-03-07 03:43] LABS: CREATININE 1.7 mg/dL (0.7-1.3); POTASSIUM 4.5 mmol/L (3.5-5.1)
[2017-03-07 03:58] LABS: ALBUMIN 2.1 g/dL (3.4-5.0); DIRECT BILIRUBIN 0.7 mg/dL (<0.1-0.3); TOTAL BILIRUBIN 1.2 mg/dL (<0.1-1.0); TOTAL PROTEIN 5.6 g/dL (6.4-8.2)
[2017-03-07 04:13] VITALS: BP 111/73
[2017-03-07 07:19] LABS: ABSOLUTE NEUTROPHILS 5.3 thou/uL (1.4-8.2); NUCLEATED RBCS 8 /100WBC; TOTAL CELL COUNT 100
[2017-03-07 07:20] LABS: ANISOCYTOSIS 1+
[2017-03-07 07:21] LABS: BURR CELLS OCCASIONAL; POIKILOCYTOSIS SLIGHT
[2017-03-07 10:02] VITALS: BP 117/85
[2017-03-07 11:22] VITALS: BP 109/81
[2017-03-07 13:02] LABS: URINE BILIRUBIN NEGATIVE (Negative); URINE BLOOD 3+ (Negative); URINE COLOR YELLOW; URINE GLUCOSE-RANDOM* NEGATIVE (Negative); URINE KETONES NEGATIVE (Negative); URINE LEUKOCYTES-REFLEX 3+ (Negative); URINE PROTEIN (DIPSTICK) 1+ (Negative); URINE UROBILINOGEN 0.2 E.U./dl (0.2-1.0)
[2017-03-07 13:12] LABS: SQUAMOUS 0-3 Few /LPF (0-3)
[2017-03-07 13:13] LABS: CASTS None Seen /LPF (None Seen); CRYSTALS None Seen /LPF (None Seen); URINE RBC >20 Many /HPF (0-2); URINE WBC-REFLEX >25 Many /HPF (0-5); WBC CLUMPS Packed (None Seen)
[2017-03-07 15:33] VITALS: BP 106/76
[2017-03-07 19:10] VITALS: BP 111/75
[2017-03-07 23:58] VITALS: BP 113/81
[2017-03-08 04:05] VITALS: BP 117/73
[2017-03-08 04:07] LABS: CALCIUM 7.9 mg/dL (8.5-10.1); CREATININE 1.6 mg/dL (0.7-1.3); HEMATOCRIT 36.6 % (42.0-52.0); HEMOGLOBIN 11.6 gm/dL (14.0-18.0); MCH 28.7 pg (26.0-34.0); MCHC 31.7 g/dL (28.0-37.0); MCV 90.4 fL (80.0-100.0); PLATELET COUNT 111 thou/uL (150-400); RBC 4.05 mil/uL (4.50-6.00); RDW 16.9 % (10.5-14.5); WBC 7.7 thou/uL (4.0-11.0)
[2017-03-08 04:14] LABS: MANUAL DIFF YES
[2017-03-08 04:23] VITALS: BP 117/73
[2017-03-08 06:14] LABS: ABSOLUTE NEUTROPHILS 5.6 thou/uL (1.4-8.2); ANISOCYTOSIS 1+; NUCLEATED RBCS 1 /100WBC; TOTAL CELL COUNT 100
[2017-03-08 11:19] VITALS: BP 115/82
[2017-03-08 17:29] VITALS: BP 104/77
[2017-03-08 19:45] VITALS: BP 104/79
[2017-03-09] VITALS: BP 104/79
[2017-03-09 03:54] VITALS: BP 101/68
[2017-03-09 05:55] LABS: ABSOLUTE NEUTROPHILS 5.4 thou/uL (1.4-8.2); BASOPHILS 0.3 % (0.0-2.0); EOSINOPHILS 1.8 % (0.0-3.0); HEMATOCRIT 35.5 % (42.0-52.0); HEMOGLOBIN 11.3 gm/dL (14.0-18.0); LYMPHOCYTES 12.7 % (24.0-44.0); MCH 28.1 pg (26.0-34.0); MCHC 31.8 g/dL (28.0-37.0); MCV 88.4 fL (80.0-100.0); MONOCYTES 9.3 % (1.0-8.0); PLATELET COUNT 122 thou/uL (150-400); POLYS 75.9 % (36.0-66.0); RBC 4.01 mil/uL (4.50-6.00); RDW 17.1 % (10.5-14.5); WBC 7.1 thou/uL (4.0-11.0)
[2017-03-09 06:21] LABS: MANUAL DIFF NO
[2017-03-09 06:22] LABS: CREATININE 1.4 mg/dL (0.7-1.3); POTASSIUM 3.2 mmol/L (3.5-5.1)
[2017-03-09 08:44] VITALS: BP 101/69
[2017-03-09 10:00] VITALS: BP 101/69
[2017-03-09 12:00] VITALS: BP 100/58
[2017-03-09] MEDS ORDERED: KEFLEX500 MG PO (15:55)
[2017-03-09] MEDS ORDERED: CARVEDILOL6.25 MG PO (15:56)
[2017-03-09 18:24] VITALS: BP 100/58
== END 2017-03-09 18:21 | DRG 377 ==
LOC: ER 12:45 → ICU 14:44 → EROBS 14:44 → ICU 16:04 → 2N 03-06 11:09 → 3N 03-08 06:09
PROVIDERS: Emergency Medicine; Internal Medicine Endocrinology, Diabetes & Metabolism; Nurse Practitioner Adult Health; Specialist
PROC: 30233L1 Transfusion of Nonautologous Fresh Plasma into Peripheral Vein, Percutaneous Approach (ICD-10-PCS; 2017-03-04)
PROC: 30233N1 Transfusion of Nonautologous Red Blood Cells into Peripheral Vein, Percutaneous Approach (ICD-10-PCS; 2017-03-04)
PROC: 30233K1 Transfusion of Nonautologous Frozen Plasma into Peripheral Vein, Percutaneous Approach (ICD-10-PCS; 2017-03-04)
PROC: 0DJ08ZZ Inspection of Upper Intestinal Tract, Via Natural or Artificial Opening Endoscopic (ICD-10-PCS; principal; 2017-03-05)
DX: K92.1 Melena (principal); E43 Unspecified severe protein-calorie malnutrition; I48.92 Unspecified atrial flutter; I13.0 Hypertensive heart and chronic kidney disease with heart failure and stage 1 through stage 4 chronic kidney disease, or unspecified chronic kidney disease; N39.0 Urinary tract infection, site not specified; I50.22 Chronic systolic (congestive) heart failure; G89.29 Other chronic pain; M54.9 Dorsalgia, unspecified; I25.10 Atherosclerotic heart disease of native coronary artery without angina pectoris; E78.5 Hyperlipidemia, unspecified; F32.9 Major depressive disorder, single episode, unspecified; K21.9 Gastro-esophageal reflux disease without esophagitis; I95.9 Hypotension, unspecified; I25.5 Ischemic cardiomyopathy; I48.91 Unspecified atrial fibrillation; F41.9 Anxiety disorder, unspecified; E03.9 Hypothyroidism, unspecified; G62.9 Polyneuropathy, unspecified; T68.XXXA Hypothermia, initial encounter; N40.0 Benign prostatic hyperplasia without lower urinary tract symptoms; Z96.643 Presence of artificial hip joint, bilateral; G47.00 Insomnia, unspecified; F17.210 Nicotine dependence, cigarettes, uncomplicated; E87.6 Hypokalemia; R54 Age-related physical debility; K92.0 Hematemesis; K29.70 Gastritis, unspecified, without bleeding; D64.9 Anemia, unspecified; N18.3 Chronic kidney disease, stage 3 (moderate); Z95.810 Presence of automatic (implantable) cardiac defibrillator; I25.2 Old myocardial infarction; Z79.01 Long term (current) use of anticoagulants; Z87.11 Personal history of peptic ulcer disease; Z86.718 Personal history of other venous thrombosis and embolism; Z95.5 Presence of coronary angioplasty implant and graft; Z68.28 Body mass index [BMI] 28.0-28.9, adult
CPT/HCPCS: 10078; 10081; 10096; 10797; 62110; 62900; 85076

== ENCOUNTER 2017-03-12 12:07 | Inpatient (IN) | payer OTHER ==
[~2017-03-12] VITALS: Ht 185.4 cm; Wt 83.5 kg
--- NOTE | ~2017-03-12 | EKG ---
[address] [address] ELECTROCARDIOGRAM REPORT Name: KILLIAN LOPEZ Room #: 457-P ADM IN M.R.#: [id number] Admission: 03/12/17 Attend Phys: Sharath Gill MD Discharge: Date of : 42 Report #: [id number] THIS REPORT FOR: //name// [facility] ED Test Date: 2017-03-12 Test Time: 12:24:31 Pat Name: KILLIAN LOPEZ Department: Room: [facility] Gender: M Welfare Director: 13 : 1940 Requested By: Volodymyr Sanches Order Number: [id number] MD: Cecilio Jones Measurements Intervals [place] Rate: 109 P: VT: QRS: -29 QRSD: 127 T: 224 QT: 418 QTc: 564 Interpretive Statements Probable Atrial flutter with predominant 2:1 AV block Nonspecific intraventricular conduction delay Anterior infarct, old Nonspecific T abnormalities, lateral leads Compared to ECG 03/06/2017 16:13:27 no significant change was found Electronically Signed On 03-13-2017 8:57:25 CDT by Cecilio Jones [email or web address] <ELECTRONICALLY SIGNED> By: Cecilio Jones MD, [facility] 03/13/17 0857 1224 1224 Cecilio Jones MD, [facility] /EPI
[~2017-03-12 12:07] MED LIST changes: +CARVEDILOL6.25 MG PO; +KEFLEX500 MG PO
[2017-03-12 12:15] VITALS: BP 95/69
[2017-03-12 13:32] LABS: ABSOLUTE NEUTROPHILS 3.1 thou/uL (1.4-8.2); EOSINOPHILS 4.5 % (0.0-3.0); HEMATOCRIT 35.3 % (42.0-52.0); HEMOGLOBIN 11.4 gm/dL (14.0-18.0); LYMPHOCYTES 22.1 % (24.0-44.0); MCH 28.5 pg (26.0-34.0); MCHC 32.2 g/dL (28.0-37.0); MCV 88.5 fL (80.0-100.0); MONOCYTES 10.9 % (1.0-8.0); PLATELET COUNT 166 thou/uL (150-400); POLYS 61.5 % (36.0-66.0); RBC 3.99 mil/uL (4.50-6.00); RDW 17.2 % (10.5-14.5); WBC 5.1 thou/uL (4.0-11.0)
[2017-03-12 13:33] LABS: MANUAL DIFF NO
[2017-03-12 13:44] LABS: ANION GAP 9 mmol/L (7-16); BUN 21 mg/dL (7-18); CALCIUM 7.5 mg/dL (8.5-10.1); CHLORIDE 108 mmol/L (98-107); CO2 26 mmol/L (21-32); CREATININE 1.3 mg/dL (0.7-1.3); GLUCOSE 95 mg/dL (74-106); POTASSIUM 3.4 mmol/L (3.5-5.1); SODIUM 143 mmol/L (136-145)
[2017-03-12 13:45] LABS: APTT 36.5 Seconds (24.5-32.8); INR 1.4; PROTIME 14.8 Seconds (9.3-11.4)
[2017-03-12 14:31] LABS: ALBUMIN 1.9 g/dL (3.4-5.0); ALKALINE PHOSPHATASE 113 U/L (46-116); CK-MB MASS 1.2 ng/mL (<0.5-3.6); MAGNESIUM 1.3 mg/dL (1.8-2.4); NT-PRO BRAIN NAT PEPTIDE 10813 pg/mL (<300); SGOT 25 U/L (15-37); SGPT 43 U/L (30-65); TOTAL PROTEIN 6.2 g/dL (6.4-8.2); TROPONIN-I < 0.04 ng/mL (<0.04-0.07)
[2017-03-12 15:16] VITALS: BP 99/65
[2017-03-12 15:50] VITALS: BP 117/96
[2017-03-12 16:47] VITALS: BP 116/50
[2017-03-12] MEDS ORDERED: VITAMIN D 5050000 I1 PO (16:52)
[2017-03-12] MEDS ORDERED: TUMS PO (16:53)
[2017-03-12] MEDS ORDERED: CARVEDILOL12.5 MG PO (16:54)
[2017-03-12] MEDS ORDERED: VITAMINC500 PO (16:55)
[2017-03-12] MEDS ORDERED: PRADAXA150 MG PO (16:55)
[2017-03-12 19:43] VITALS: BP 92/67
[2017-03-12 23:43] VITALS: BP 103/72
[2017-03-13 03:54] VITALS: BP 101/57
[2017-03-13 06:06] LABS: HEMATOCRIT 34.1 % (42.0-52.0); HEMOGLOBIN 10.9 gm/dL (14.0-18.0); MCH 28.8 pg (26.0-34.0); MCHC 32.1 g/dL (28.0-37.0); MCV 89.7 fL (80.0-100.0); PLATELET COUNT 148 thou/uL (150-400); WBC 5.7 thou/uL (4.0-11.0)
[2017-03-13 06:26] LABS: ALBUMIN 1.8 g/dL (3.4-5.0); CALCIUM 7.2 mg/dL (8.5-10.1); CREATININE 1.2 mg/dL (0.7-1.3); MAGNESIUM 1.7 mg/dL (1.8-2.4); TOTAL BILIRUBIN 1.1 mg/dL (<0.1-1.0); TOTAL PROTEIN 5.6 g/dL (6.4-8.2)
[2017-03-13 06:34] LABS: MANUAL DIFF YES
[2017-03-13 06:41] LABS: POTASSIUM 4.7 mmol/L (3.5-5.1)
[2017-03-13 07:58] VITALS: BP 93/66
[2017-03-13 09:14] LABS: ABSOLUTE NEUTROPHILS 2.9 thou/uL (1.4-8.2); ANISOCYTOSIS 1+; NUCLEATED RBCS 7 /100WBC; POIKILOCYTOSIS 2+; POLYCHROMASIA 1+; TARGET CELLS 1+; TOTAL CELL COUNT 100
[2017-03-13 09:15] LABS: BURR CELLS 1+; OVALOCYTES FEW
[2017-03-13 11:02] VITALS: BP 97/64
[2017-03-13 15:59] VITALS: BP 99/68
[2017-03-13 20:29] VITALS: BP 94/72
[2017-03-13 23:18] VITALS: BP 91/51
[2017-03-14 02:43] VITALS: BP 100/60
[2017-03-14 02:55] LABS: ABSOLUTE NEUTROPHILS 2.5 thou/uL (1.4-8.2); BASOPHILS 1.1 % (0.0-2.0); EOSINOPHILS 3.8 % (0.0-3.0); HEMATOCRIT 33.1 % (42.0-52.0); HEMOGLOBIN 10.6 gm/dL (14.0-18.0); LYMPHOCYTES 20.4 % (24.0-44.0); MCH 28.2 pg (26.0-34.0); MCV 88.3 fL (80.0-100.0); MONOCYTES 11.7 % (1.0-8.0); PLATELET COUNT 162 thou/uL (150-400); RBC 3.75 mil/uL (4.50-6.00); RDW 17.4 % (10.5-14.5); WBC 4.8 thou/uL (4.0-11.0)
[2017-03-14 02:59] LABS: MANUAL DIFF NO
[2017-03-14 03:04] LABS: CREATININE 1.3 mg/dL (0.7-1.3); MAGNESIUM 1.5 mg/dL (1.8-2.4)
[2017-03-14 03:05] LABS: POTASSIUM 3.2 mmol/L (3.5-5.1)
[2017-03-14 07:08] VITALS: BP 94/64
[2017-03-14 12:49] VITALS: BP 96/60
[2017-03-14 16:10] VITALS: BP 119/62
[2017-03-14 19:05] VITALS: BP 99/72
[2017-03-15 04:20] VITALS: BP 100/69
[2017-03-15 06:24] LABS: HEMATOCRIT 34.8 % (42.0-52.0); HEMOGLOBIN 11.1 gm/dL (14.0-18.0); MCH 28.3 pg (26.0-34.0); MCHC 31.9 g/dL (28.0-37.0); MCV 88.8 fL (80.0-100.0); PLATELET COUNT 168 thou/uL (150-400); RBC 3.92 mil/uL (4.50-6.00); RDW 17.4 % (10.5-14.5)
[2017-03-15 06:34] LABS: MANUAL DIFF YES
[2017-03-15 06:39] LABS: CALCIUM 7.7 mg/dL (8.5-10.1); CREATININE 1.5 mg/dL (0.7-1.3); POTASSIUM 3.7 mmol/L (3.5-5.1)
[2017-03-15 07:30] VITALS: BP 120/50
[2017-03-15 09:24] LABS: ABSOLUTE NEUTROPHILS 3.8 thou/uL (1.4-8.2); ANISOCYTOSIS 1+; HYPOCHROMASIA 2+; PLATELET ESTIMATE NORMAL; TOTAL CELL COUNT 100
[2017-03-15 12:01] VITALS: BP 123/55
[2017-03-15 15:50] VITALS: BP 101/73
[2017-03-15 19:21] VITALS: BP 106/66
[2017-03-16 04:10] LABS: CALCIUM 8.4 mg/dL (8.5-10.1); CREATININE 1.5 mg/dL (0.7-1.3); MAGNESIUM 1.7 mg/dL (1.8-2.4); POTASSIUM 3.7 mmol/L (3.5-5.1)
[2017-03-16 04:55] VITALS: BP 109/62
[2017-03-16 07:58] VITALS: BP 111/76
[2017-03-16 11:30] VITALS: BP 108/78
[2017-03-16 14:34] VITALS: BP 105/80
[2017-03-16 19:55] VITALS: BP 96/74
[2017-03-17 03:24] VITALS: BP 101/76
[2017-03-17 05:01] LABS: CALCIUM 8.1 mg/dL (8.5-10.1); CREATININE 1.5 mg/dL (0.7-1.3); POTASSIUM 3.9 mmol/L (3.5-5.1)
[2017-03-17 07:25] VITALS: BP 102/70
[2017-03-17 11:24] VITALS: BP 120/76
[2017-03-17 15:38] VITALS: BP 114/72
[2017-03-17 20:12] VITALS: BP 104/74
[2017-03-18 03:54] VITALS: BP 105/81
[2017-03-18 05:03] LABS: HEMOGLOBIN 11.8 gm/dL (14.0-18.0); MCH 28.2 pg (26.0-34.0); WBC 6.6 thou/uL (4.0-11.0)
[2017-03-18 05:07] LABS: HEMATOCRIT 37.1 % (42.0-52.0); MCHC 31.8 g/dL (28.0-37.0); MCV 88.9 fL (80.0-100.0); RBC 4.17 mil/uL (4.50-6.00); RDW 17.4 % (10.5-14.5)
[2017-03-18 05:18] LABS: CALCIUM 8.5 mg/dL (8.5-10.1); CREATININE 1.6 mg/dL (0.7-1.3); POTASSIUM 3.9 mmol/L (3.5-5.1)
[2017-03-18 07:04] VITALS: BP 93/72
[2017-03-18 11:45] VITALS: BP 103/77
[2017-03-18 16:22] VITALS: BP 111/73
[2017-03-18 18:44] VITALS: BP 128/74
[2017-03-19 07:32] LABS: WBC 6.7 thou/uL (4.0-11.0)
[2017-03-19 07:35] LABS: HEMATOCRIT 35.3 % (42.0-52.0); HEMOGLOBIN 11.3 gm/dL (14.0-18.0); MCH 28.2 pg (26.0-34.0); MCHC 32.1 g/dL (28.0-37.0); MCV 87.8 fL (80.0-100.0); RBC 4.02 mil/uL (4.50-6.00); RDW 17.5 % (10.5-14.5)
[2017-03-19 07:42] VITALS: BP 109/53
[2017-03-19 07:43] LABS: CALCIUM 8.2 mg/dL (8.5-10.1); CREATININE 1.6 mg/dL (0.7-1.3); POTASSIUM 3.5 mmol/L (3.5-5.1)
[2017-03-19 12:30] VITALS: BP 103/69
[2017-03-19 16:43] VITALS: BP 90/66
[2017-03-19 19:57] VITALS: BP 108/89
[2017-03-20 03:52] VITALS: BP 122/79
[2017-03-20 06:59] VITALS: BP 97/78
[2017-03-20] MEDS ORDERED: AUGMENTIN 500-1 EACH PO (08:51)
[2017-03-20] MEDS ORDERED: LASIX 40 MG TAB40 M1 PO (08:51)
[2017-03-20 11:38] VITALS: BP 111/83
[2017-03-20 14:48] VITALS: BP 102/72
== END 2017-03-20 19:00 | DRG 177 ==
LOC: ER 12:07 → EROBS 14:51 → 4W 14:51
PROVIDERS: Emergency Medicine; Family Medicine; Internal Medicine; Nurse Practitioner
DX: J15.6 Pneumonia due to other Gram-negative bacteria (principal); G93.41 Metabolic encephalopathy; I50.23 Acute on chronic systolic (congestive) heart failure; J96.00 Acute respiratory failure, unspecified whether with hypoxia or hypercapnia; E44.0 Moderate protein-calorie malnutrition; I48.92 Unspecified atrial flutter; J90 Pleural effusion, not elsewhere classified; N39.0 Urinary tract infection, site not specified; J98.11 Atelectasis; I13.0 Hypertensive heart and chronic kidney disease with heart failure and stage 1 through stage 4 chronic kidney disease, or unspecified chronic kidney disease; I25.10 Atherosclerotic heart disease of native coronary artery without angina pectoris; G89.29 Other chronic pain; M54.9 Dorsalgia, unspecified; Z96.643 Presence of artificial hip joint, bilateral; K21.9 Gastro-esophageal reflux disease without esophagitis; E78.5 Hyperlipidemia, unspecified; N40.0 Benign prostatic hyperplasia without lower urinary tract symptoms; E03.9 Hypothyroidism, unspecified; G47.00 Insomnia, unspecified; F41.9 Anxiety disorder, unspecified; G62.9 Polyneuropathy, unspecified; E83.42 Hypomagnesemia; F17.210 Nicotine dependence, cigarettes, uncomplicated; E87.6 Hypokalemia; I95.9 Hypotension, unspecified; F32.9 Major depressive disorder, single episode, unspecified; I48.91 Unspecified atrial fibrillation; I25.5 Ischemic cardiomyopathy; N18.3 Chronic kidney disease, stage 3 (moderate); Z68.24 Body mass index [BMI] 24.0-24.9, adult; Z95.5 Presence of coronary angioplasty implant and graft; Z79.899 Other long term (current) drug therapy; I25.2 Old myocardial infarction; Z86.718 Personal history of other venous thrombosis and embolism
CPT/HCPCS: 10045

== ENCOUNTER 2017-03-21 12:00 | Emergency (ER) | payer OTHER ==
[~2017-03-21] VITALS: Ht 185.4 cm; Wt 83.5 kg
[~2017-03-21 12:00] MED LIST changes: +AUGMENTIN 500-1 EACH PO
== END 2017-03-21 16:04 ==
LOC: ER 12:00
DX: R06.02 Shortness of breath (principal); I13.2 Hypertensive heart and chronic kidney disease with heart failure and with stage 5 chronic kidney disease, or end stage renal disease; N18.6 End stage renal disease; I50.9 Heart failure, unspecified; G89.29 Other chronic pain; Z96.643 Presence of artificial hip joint, bilateral; E78.5 Hyperlipidemia, unspecified; F32.9 Major depressive disorder, single episode, unspecified; K21.9 Gastro-esophageal reflux disease without esophagitis; Z95.5 Presence of coronary angioplasty implant and graft; I25.2 Old myocardial infarction; E03.9 Hypothyroidism, unspecified; F41.9 Anxiety disorder, unspecified; Z86.79 Personal history of other diseases of the circulatory system; Z86.718 Personal history of other venous thrombosis and embolism; I48.92 Unspecified atrial flutter; Z79.82 Long term (current) use of aspirin; F17.210 Nicotine dependence, cigarettes, uncomplicated; F10.99 Alcohol use, unspecified with unspecified alcohol-induced disorder